=== PATIENT | female | born 1990 | race Caucasian/White ===

== ENCOUNTER 2024-03-08 13:32 | Emergency (ER) | payer OTHER, SELFPAY ==
[2024-03-08] VITALS (9 sets, daily range): BP systolic 118–121; BP diastolic 62–71; PULSE 71–93; TEMP 36.8; O2SAT 97–100; BMI 28.3
--- NOTE | 2024-03-08 13:59 | ECG_ITS ---
[facility] Test Date: 2024-03-08 Pat Name: BIANKA MENA Department: Room: - Gender: Female [employer] Technician: : 1990 Requested By: PAZ PEREZ Order Number: [id number] Reading MD: SADE CISNEROS Measurements Intervals [place] Rate: 69 P: 63 CO: 134 QRS: 67 QRSD: 84 T: 74 QT: 376 QTc: 394 Interpretive Statements 1100 Sinus rhythm 9110 normal ECG No previous ECG available for comparison Electronically Signed On 03-08-2024 22:24:53 EDT by SADE CISNEROS
--- NOTE | 2024-03-08 14:02 | ED_ITS ---
HPI HPI - General Adult General Chief complaint: Chest Pain Stated complaint: CHEST PAIN Time Seen by Provider: 03/08/24 13:33 Source: patient Mode of arrival: walk-in Limitations: no limitations History of Present Illness HPI narrative: Patient presents ED complaining of left-sided chest pain. She states that she has been feeling a little bit of chest pain and heart palpitations since y esterday. She was given Vistaril to help her sleep and she has this chest pain and heart palpitations happen when she takes Benadryl. Vistaril is very similar to Benadryl and she thinks that may be what is causing it but she wanted to come get checked out. She wanted an EKG but for now did not want any chest x-ray or blood work done unless there was something abnormal with the EKG. She denies shortness of breath calf pain leg pain or swelling. No syncope. No diaphoresis. 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 Patient denies any other cardiac history. Related Data Home Medications ?Medication ?Instructions ?Recorded ?Confirmed aripiprazole PO .qhs 03/08/24 buspirone 5 mg tablet 5 mg PO TID 03/08/24 03/08/24 hydroxyzine pamoate 50 mg capsule 50 mg PO .qhs 03/08/24 03/08/24 melatonin 10 mg tablet 10 mg PO .qhs 03/08/24 03/08/24 ropinirole 0.5 mg tablet 0.5 mg PO .qhs 03/08/24 03/08/24 sertraline PO QDAY 03/08/24 trazodone 50 mg tablet 50 mg PO .qhs 03/08/24 03/08/24 Allergies Allergy/AdvReac Type Severity Reaction Status Date / Time diphenhydramine AdvReac Intermediate Chest Pain Verified 03/08/24 13:39 [From Benadryl] Opioid HPI Opioid Management Most Recent Opioid Data: No Data to Display Review of Systems ROS Status of ROS 10 or more systems reviewed and unremark able except as noted in history and below Exam Narrative Exam Narrative: General: alert, no acute distress Cardiovascular: regular rate and rhythm, normal peripheral perfusion. Respiratory: Lungs CTA, respirations non labored. Extremities: no deformity, no trauma. Neurological: oriented x 4, LOC appropriate for age. Constitutional Vital Signs, click to edit/add: Last Vital Signs Temp 98.3 F 03/08/24 13:40 Pulse 74 03/08/24 13:40 Resp 16 03/08/24 13:40 BP 118/62 03/08/24 13:40 Pulse Ox 98 03/08/24 13:40 O2 Del Method Room Air 03/08/24 13:40 Course Vital Signs Vital signs: Vital Signs Temperature 98.3 F 03/08/24 13:40 Pulse Rate 74 03/08/24 13:40 Respiratory Rate 16 03/08/24 13:40 Blood Pressure 118/62 03/08/24 13:40 Pulse Oximetry 98 03/08/24 13:40 Oxygen Delivery Method Room Air 03/08/24 13:40 Temperature 98.3 F 03/08/24 13:40 Pulse Rate 74 03/08/24 13:40 Respiratory Rate 16 03/08/24 13:40 Blood Pressure 118/62 03/08/24 13:40 Pulse Oximetry 98 03/08/24 13:40 Oxygen Delivery Method Room Air 03/08/24 13:40 Medical Decision Making MDM Narrative Medical decision making narrative: EKG is negative for acute findings. Patient declined any labs or chest x-ray. This most likely is related to the Vistaril as she does have the same reaction with Benadryl. Return to ED if worsening symptoms otherwise follow-up with family doctor. Patient Comfortable care plan for home Differential Diagnosis Differential Diagnosis: Medication reaction, palpitations, chest pain, atypical chest pain, anxiety ECG Data Attestation: I personally reviewed and interpreted this ECG as follows: Interpretation: EKG INTERPRETATION Time: []1354 Rate: []69 Rhythm: _ []Normal sinus rhythm ST segments: _ []No acute ST elevation or depression T waves: _ [] Ectopy: _ [] P wave/VA interval: _ [] QRS interval: _ [] QT interval: _ [] Comparison: _ [] Comparison EKG date: [] Performed by: [self] Discharge Plan Discharge Stand Alone Forms: Work/School Release, Portal Instructions Chief Complaint: Chest Pain Clinical Impression: Chest pain Patient Disposition: Home, Self-Care Time of Disposition Decision: 14:02 Condition: Good Mode of Transportation: Private Vehicle Prescriptions / Home Meds: No Action sertraline [Zoloft] PO QDAY hydroxyzine pamoate 50 mg capsule 50 mg PO .qhs melatonin 10 mg tablet 10 mg PO .qhs ropinirole 0.5 mg tablet 0.5 mg PO .qhs trazodone 50 mg tablet 50 mg PO .qhs aripiprazole [Abilify] PO .qhs buspirone 5 mg tablet 5 mg PO TID Print Language: Occitan Instructions: Chest Pain (ED) Referrals: PAZ PEREZ [Primary Care Provider] - 1 week
== END 2024-03-08 15:05 | disposition home or self-care (01) ==
PROVIDERS: Emergency Provider Emergency Medicine; PCP Family Medicine
DX: R07.9 Chest pain, unspecified (principal)
CPT/HCPCS: 93005; 99283